=== PATIENT | male | born 1970 | race Caucasian/White ===

== ENCOUNTER 2023-10-20 09:46 | Outpatient (CLI) | payer BC ==
[~2023-10-20 09:46] MED LIST: Magnevist 469MG/ML 20 ML VIAL ONE
== END 2023-10-20 09:47 | disposition home or self-care (01) ==
LOC: CSHMRI 09:46
PROVIDERS: ATTEND Urology
DX: R97.20 Elevated prostate specific antigen [PSA] (principal); R93.89 Abnormal findings on diagnostic imaging of other specified body structures
CPT/HCPCS: 72197; A9579